=== PATIENT | female | born 1950 | race Caucasian/White ===

== ENCOUNTER 2022-03-26 12:58 | Outpatient (CLI) | payer MEDICARE | END 2022-03-26 12:59 | disposition home or self-care (01) | LOC: MRI 12:58 | PROVIDERS: ATTEND Psychiatry & Neurology Neurology | DX: G54.0 Brachial plexus disorders (principal); M47.812 Spondylosis without myelopathy or radiculopathy, cervical region | CPT/HCPCS: 72141 ==